=== PATIENT | male | born 1965 | race Hispanic/Latino ===

== ENCOUNTER 2025-03-12 04:49 | Day surgery (SDC) | payer OTHER, SELFPAY ==
[2025-03-12] VITALS (17 sets, daily range): BP systolic 99–172; BP diastolic 54–101; BMI 39.5; BMI 40.8
[2025-03-12 02:00] LABS: Hematocrit 42.5 % (39.0-52.0); Hemoglobin 14.1 g/dL (13.0-18.0); Mean Corp Hgb Conc. 33.2 g/dL (33.0-37.0); Mean Corpuscular Volume 88.9 fL (80.0-94.0); Nucleated Red Blood Cells % 0 % (-); Platelet Count 326 10^3/uL (130-400); Red Cell Dist. Width 13.7 % (11.5-14.5)
[2025-03-12] MEDS: ZOFRAN 4 MG IV (02:08)
[2025-03-12] MEDS: MORPHINE SULFATE 4 MG IV (02:09)
--- NOTE | 2025-03-12 02:09 | ED.GENMED ---
History of Present Illness
General
Chief Complaint: Abdominal Pain
Source: patient
Time Seen by Provider: 03/12/25 01:30
Nursing documentation reviewed up to this point in time: agreed with
History of Present Illness
History of Present Illness:
Note:
CHIEF COMPLAINT(S)
Abdominal pain.
HISTORY OF PRESENT ILLNESS
The patient is a 59-year-old male presenting with abdominal pain located just below the sternum, which started a few days ago. The pain is described as localized, without radiation to the shoulder or jaw. The patient did not report any aggravating
or relieving factors; however, he noted that eating a banana made the pain slightly worse. This pain resembles a previous episode concerning the gallbladder, although the previous episode involved shoulder discomfort. The patient denied eating
dinner on the day of the consultation to avoid exacerbating the pain. He reported having a bowel movement a couple of hours prior, which was harder than usual.
PAST MEDICAL AND SURGICAL HISTORY
The patient has a history of gallbladder issues, as assessed over a year ago.
FAMILY HISTORY
The patients mother had a history of heart problems and from a blood condition at the age of 60.
SOCIAL HISTORY
The patient reports minimal alcohol use and denies any smoking or drug use. He lives in [place] and is currently visiting a friend.
PHYSICAL EXAM
General: Alert, no acute distress.
Skin: Warm, dry.
Head: Normocephalic, atraumatic.
Neck: Supple, trachea midline.
Eye Ears, nose, mouth, and throat: Oral mucosa moist.
Cardiovascular: Normal peripheral perfusion, No edema.
Respiratory: Respirations are non-labored.
Gastrointestinal: Abdomen nondistended but feels slightly bloated as compared to normal.
Back: Normal range of motion, Normal alignment.
Musculoskeletal: Normal range of motion, normal strength.
Neurological: Alert and oriented to person, place, time, and situation, No focal neurological deficit observed.
Psychiatric: Cooperative, appropriate mood & affect.
PLAN
The plan includes performing blood work, obtaining a portable chest X-ray, and scheduling an abdominal ultrasound. The working diagnosis leans towards a gallbladder issue; however, cardiac evaluation will also be considered if necessary. Additional
imaging may be required based on the initial results.
DIFFERENTIAL DIAGNOSIS
The Differential Diagnosis includes, in no particular order and is not limited to:
1. Cholecystitis
2. Peptic Ulcer Disease
3. Gastritis
4. Myocardial Ischemia
5. Pancreatitis
6. Gastroesophageal Reflux Disease (GERD)
7. Hepatic Disease
8. Aortic Dissection
9. Costochondritis
10. Appendicitis
Disposition:
SUMMARY OF ENCOUNTER
The patient is a 59-year-old male presenting due to issues related to acute colitis. The decision was made to admit the patient to ensure appropriate management and monitoring.
DISPOSITION
Admit to Dr. Trujillo service for further evaluation and treatment.
ASSESSMENT
Acute colitis contributing to abdominal pain and discomfort, necessitating inpatient care for optimal management.
DIAGNOSIS
Acute colitis (K52.9)
Phy Exam
Physical Exam
Physical Exam:
.
Course
Orders/Labs/Results
Orders:
Orders
03/12/25 01:30
EKG- Treatment ONCE
03/12/25 01:31
EKG- Treatment ONCE
03/12/25 01:32
Cardiac Monitoring- Treatment ONCE
CR Chest Portable - 1 View Urgent
Comment:
Reason For Exam: cp
Reason Study Needs to be Portable: Patient Unstable
03/12/25 01:38
CMP [Comprehensive Metabolic Panel] Urgent
Complete Blood Count/With Diff Urgent
Lipase Urgent
Magnesium Urgent
NT-proBNP Urgent
PTT Urgent
Prothrombin Time Urgent
TSH Urgent
Troponin I Urgent
03/12/25 01:51
US Abdomen Complete/Upper Urgent
Comment:
Reason For Exam: (+) Ferguson sign, RUQ abd pain
03/12/25 02:05
Morphine Sulfate 4 mg IV NOW STA
Ondansetron Injectable [Zofran] 4 mg IV NOW STA
03/12/25 02:40
HYDROmorphone [Dilaudid] 1 mg IV NOW STA
03/12/25 03:05
Acetaminophen 1000MG/100Ml [Ofirmev] 1,000 mg in 100 ml IV ONCE
Acetaminophen IV Indication:: ED Narcotic Naive Pt-ONCE
03/12/25 04:28
Admit/Transfer Patient As Directed
Co-Sign Provider:
Level of Care: Observation services
Assign to:: Medical/Surgical
Physician / Group: General Surgery/ Dr. Arvin Carter
Diagnosis: Acute Cholecystitis
03/12/25 04:35
Code Status As Directed
Resuscitation Status: Full Code
03/12/25 04:43
Troponin I Q3H
03/12/25 04:45
Electrocardiogram (*1) Q3H
Reason for Study: Chest Pain
03/12/25 Breakfast
NPO
Allow oral meds: Yes
Allow clear liquids: No
03/12/25 06:05
0.9% Sodium Chloride 1000 ml [Nss] 1,000 ml IV 140 mls/hr
Cyclobenzaprine HCl [Flexeril] 10 mg PO TID PRN back pain
Ketorolac [Toradol] 10 mg IV Q6HPRN PRN
Morphine Sulfate 2 mg IV Q2HPRN PRN
Morphine Sulfate 4 mg IV Q2HPRN PRN
03/12/25 06:05
Activity As Directed
Activity Level: Out of Bed-Early Mobility
Intake/ Output As Directed
Frequency: Per unit guidelines
Pneumatic Compression Sleeves As Directed
Type: Knee high
Vital Signs As Directed
Frequency: Per unit guidelines
DX Deep Vein Thrombosis Video Routine
03/12/25 07:00
Piperacillin/Tazo 3.375 Gram [Zosyn] 3.375 gram in 50 ml IV Q6H
03/12/25 08:00
Ondansetron Injectable [Zofran] 4 mg IV Q6HPRN PRN
Abnormal Lab Results
03/12/25
01:38
WBC 16.4 H 10^3/uL
(4.8-10.8)
Abs Immat Gran (auto) 0.1 H 10^3/uL
(0-0.05)
Absolute Neuts (auto) 12.3 H 10^3/uL
(1.4-6.5)
Absolute Monos (auto) 1.5 H 10^3/uL
(0.1-0.6)
Lymphocytes % 15.2 L %
(20.5-51.1)
Carbon Dioxide 31 H mmol/L
(22-30)
Glucose 123 H mg/dl
(70-99)
03/12/25 01:38
03/12/25 01:38
Vital Signs
Initial and Last Documented VS:
Initial Vital Signs
Temp Pulse Resp BP Pulse Ox
97.9 F 89 22 150/101 98
03/12/25 01:21 03/12/25 01:21 03/12/25 01:21 03/12/25 01:21 03/12/25 01:21
Last Documented Vital Signs
Temp Pulse Resp BP Pulse Ox
98.6 F 93 16 132/76 94
03/13/25 11:20 03/13/25 11:20 03/13/25 11:20 03/13/25 11:20 03/13/25 11:20
*Pulse Oximetry
SaO2: 97
Oxygen Mode of Delivery: Room air
Patient hypoxic: no
*Critical Care Note
Total Time (30-74mins, 75-104mins- exclusive of procedures): Not Applicable
Update Note
Update Note:
NAME: APRIL FISHER
DATE OF EXAM: 03/12/2025
Patient No: [id number]
Physician: PAZ
Date of : 1965
Past Medical History (entered by Technologist):
Reason For Exam (entered by Technologist):
Other Notes (entered by Technologist):
Additional Information (per [facility] Radiologist):
ULTRASOUND ABDOMEN COMPLETE
COMPARISON: None
IMPRESSION:
Gallbladder is distended with multiple gallstones in the gallbladder including in the gallbladder neck. Nonuniform wall thickening with foci of ringdown artifact in the gallbladder wall at the fundus. Sonographic Ferguson sign positive
While the nonuniform gallbladder wall thickening is consistent with adenomyomatosis, overall the findings are concerning for acute cholecystitis given the positive Ferguson's.
The common bile duct measures 6 mm.
Visualized pancreas is unremarkable.
Increased hepatic echogenicity is consistent with steatosis.
The kidneys are normal.
Visualized abdominal aorta and inferior vena cava are normal.
Spleen is unremarkable.
Case finalized on 03/12/25 03:11 EDT
Ghassan Arrington M.D.
This report has been electronically signed and verified by the Radiologist whose name is printed above.
ED Attending Note
-
Portions of this chart may have been created with voice recognition software.� Occasional wrong word or��sound alike� substitutions may have occurred due to the inherent limitations of voice recognition software.
Discharge Plan
Departure
Patient Disposition: Admit
Presentation/result/management discussed w/ accepting /: Emma
Discharge Problem:
Acute cholecystitis
Interventions
Interventions:
*Risk Screen - Suicide Last Done: 03/12/25 06:08
*General Assessment Last Done: 03/12/25 01:21
*Neglect/Abuse Screening Last Done: 03/12/25 01:21
*ED- Fall Risk Assessment Last Done: 03/12/25 01:21
*ED COVID-19 Vaccine History Last Done: 03/12/25 06:08
*ED Influenza Vaccine History Last Done: 03/12/25 01:21
*Nursing Disposition Last Done: 03/12/25 05:52
EU-Mmlyxj-Edofbtugeu Assessment Last Done: 03/12/25 01:48
Discharge Date and Time
Discharge Date/Time: 03/12/25 05:52
[2025-03-12 02:10] LABS: APTT 35.0 Sec (23.4-35.0); INR 1.03; PT 14.0 Sec (11.4-14.6)
[2025-03-12 02:22] LABS: ALT (SGPT) 17 U/L (0-50); AST (SGOT) 20 U/L (17-59); Albumin 4.6 g/dl (3.5-5.0); Alkaline Phosphatase 95 U/L (38-126); Blood Urea Nitrogen 13 mg/dl (9-20); Calcium 9.5 mg/dl (8.4-10.2); Carbon Dioxide 31 mmol/L (22-30); Chloride 101 mmol/L (98-107); Estimated Creatinine Clearance > 125 ml/min; Glucose 123 mg/dl (70-99); Lipase 49 U/L (23-300); Magnesium 1.9 mg/dl (1.6-2.3); Potassium 4.6 mmol/L (3.5-5.1); Sodium 139 mmol/L (135-145); Total Protein 7.8 g/dl (6.3-8.2); eGFR > 60.00
[2025-03-12 02:33] LABS: Troponin I < 0.012 ng/ml
[2025-03-12] MEDS: DILAUDID 1 MG IV (02:41)
[2025-03-12 02:51] LABS: TSH 1.38 uIU/ml (0.47-4.68)
[2025-03-12] MEDS: OFIRMEV 100 IV (03:21)
--- NOTE | 2025-03-12 04:43 | HPS.HSE ---
Addendum entered and electronically signed by Arvin Carter MD 03/12/25 07:55:
I saw and examined the patient.
The Cement Tile Maker's note was reviewed and I agree with the note.
Comment: 59M, second episode, last time 2 years ago was seen at [facility] in [place] where he lives, given the option for CCY but deferred. Presents this time with acute onset upper abd pain localized to RUQ and epigastrium after eating a breakfast
[place]. His pain has improved since then but he remains moderately ttp at RUQ/epigastrium this am. WBC 16.4K LFTs WNL. US with stones, GBWT 6mm, no PCF, CBD 6mm. BMI 40. He lives in [place] and plans to return in 5 days. We discussed the
anatomy and pathophysiology of ACC, operative procedure lap giovanni, risks, benefits, complications and alternatives and he agreed to proceed and signed the consent. He is added onto the schedule today.
Original Note:
Family Physician
-
Family Physician: * NONE
Chief Complaint
-
Abdominal pain
History of Present Illness
This is a 59-year-old man who presents to [facility] without a significant past medical history. Past surgical hx significant for R shoulder rotator cuff repair and R Biceps tendon repair.
He presents tonight with complaints of abrupt onset of sharp sub sternal abdominal pain that began hours after he ate breakfast and went for a walk. He notes that the pain got progressively worse as the day went on but denies taking anything at home
to alleviate the pain. He reports that the abdominal pain is better post Morphine.
Denies vomiting, diarrhea, diaphoresis, fevers, chest pain, dysuria, urgency, or hematuria. Reports last BM was 03/11/25. Denies hematochezia.
He reports nausea and SOB- related to the pain.
Reports a history of a similar episode about a year ago- he doesn't remember if imaging was completed at the time but they told him 'you will probably need your gallbladder taken out'
WBCs 16.4, UA- pending
He received Dilaudid and Morphine for pain and Zofran for nausea.
Medical History
Past Medical History
Past Medical History: Reports None
Past Surgical History: Reports Orthopedic (R shoulder rotator cuff repair and R Biceps tendon repair)
Social History
Tobacco: Non-smoker
Alcohol: Occasional
Drug: None
Employment: Employed
Family History
Family History: Not pertinent
Allergies / Home Medications
Allergies reflects when Allergies were last updated in [facility].
Home Medications with original date entered in [facility]
Allergy/Medication List:
Allergies
Allergy/AdvReac Type Severity Reaction Status Date / Time
No Known Allergies Allergy Verified 03/12/25 01:20
Home Medications
cyclobenzaprine 10 mg tablet 10 mg PO TID PRN back pain 03/12/25
Review of Systems
-
History Source: Patient
A 12 point ROS was completed and negative except as noted: Yes
Abdomen/GI: Reports Abdominal Pain and Nausea
Physical Exam
Vital Signs
Vital Signs
Temp Pulse Resp BP Pulse Ox
98.8 F 93 19 154/77 97
03/12/25 03:23 03/12/25 03:45 03/12/25 03:45 03/12/25 03:00 03/12/25 02:10
Physical Exam
General: Well Developed and Comfortable
HEENT: NormoCephalic
Respiratory: Clear
Cardiac: S1/S2 and Regular Rhythm
GI: Normal Bowel Sounds, Tender and Other (obese)
Genito-urinary: Deferred by me
Musculoskeletal: No Clubbing and No Edema
Skin: Warm
Neuro: AO x 3
Hematologic/Lymphatic: No Lymphadenopathy
Psych: Calm
Laboratory Results
-
03/12/25 01:38
03/12/25 01:38
Laboratory Results
PT 14.0 Sec (11.4-14.6) 03/12/25 01:38
INR 1.03 03/12/25 01:38
APTT 35.0 Sec (23.4-35.0) 03/12/25 01:38
Total Bilirubin 0.9 mg/dl (0.2-1.3) 03/12/25 01:38
AST 20 U/L (17-59) 03/12/25 01:38
ALT 17 U/L (0-50) 03/12/25 01:38
Alkaline Phosphatase 95 U/L (38-126) 03/12/25 01:38
Troponin I < 0.012 ng/ml 03/12/25 01:38
Lipase 49 U/L (23-300) 03/12/25 01:38
Data Reviewed
-
Lab Data: Labs Reviewed by me
Impression/Plan
-
ULTRASOUND ABDOMEN
IMPRESSION:
Gallbladder is distended with multiple gallstones in the gallbladder including in the gallbladder neck. Nonuniform wall thickening with foci of ringdown artifact in the gallbladder wall at the fundus. Sonographic Ferguson sign positive
While the nonuniform gallbladder wall thickening is consistent with adenomyomatosis, overall the findings are concerning for acute cholecystitis given the positive Ferguson's.
The common bile duct measures 6 mm.
Visualized pancreas is unremarkable.
Increased hepatic echogenicity is consistent with steatosis.
The kidneys are normal.
Visualized abdominal aorta and inferior vena cava are normal.
Spleen is unremarkable.
IMPRESSION/ PLAN:
Admit to General Surgery- Dr. Carter
Med Surg
Acute Cholecystitis
NPO
IVF
ABX
Antiemetics
PRN pain management
DVT Prophylaxis: SCDs
Full Code�
[2025-03-12 05:19] LABS: Troponin I < 0.012 ng/ml
[2025-03-12] MEDS: ZOSYN 50 IV ×3 (08:46→17:14)
[2025-03-12] MEDS: MORPHINE SULFATE 2 MG IV (08:47)
[2025-03-12] MEDS: NSS 1000 IV ×2 (08:49→19:30)
[2025-03-12] MEDS: TORADOL 10 MG IV (12:54)
--- NOTE | 2025-03-12 14:03 | W.SUR.PREOP ---
Pre-Operative Surgical Note
-
I have examined this patient prior to the performance of the scheduled procedure.
The patient's condition is unchanged from the time of the current History and
Physical and the patient is able to undergo the scheduled procedure.
--- NOTE | 2025-03-12 15:57 | W.IMMPOSTOP ---
Addendum entered and electronically signed by Salvador Clarke MD 03/12/25 16:10:
#[id number]
Original Note:
Surgical Immed Post Op Note
-
Primary Surgeon: Salvador Clarke MD
Assisting Surgeon: Stan Russ
Pre-op Diagnosis: Acute calculous cholecystitis
Post-op Diagnosis: Acute calculous cholecystitis
Procedure Performed: Laparoscopic cholecystectomy
Anesthesia Type: GETA +0.25% Marcaine with epinephrine
Specimen / Cultures: Gallbladder/none
Estimated Blood Loss: 6 mL
Complications: None immediate
Operative Findings: Enlarged, tensely distended gallbladder encased within inflammatory peel. Chronic adhesions as well. Cyst needle decompression to aid in grasping, retraction and exposure. Cystic triangle dissected out with critical view of
safety achieved identify cystic artery and duct as well as single posterior artery branch. Structures clipped. Liver bed intact other than needle decompression site. Extracted at epigastric port site which had to be enlarged to accommodate the
large gallbladder and stones.
Plan: Advance diet as tolerated
Continue Zosyn initially postoperatively but anticipate discharge without antibiotics
Routine postoperative supportive care
Patient's updated via phone call
--- NOTE | 2025-03-12 17:08 | CM ---
I.A: Completed By LAKHWINDER Monroy
Patient lives with his in [place], but here because he is a [place] at an event and was hospitalized. Lives in a 2 Story House, No DME, only Outpatient PT, No Inpatient Rehab.
[facility] [place]
[facility]acy: Can use local [facility] where he is staying, but [facility]
Patient has transportation Home when ready. PLAN: Anticipate Home No Needs.
[2025-03-13] MEDS: NSS 1000 IV (00:05)
[2025-03-13] MEDS: ZOSYN 50 IV ×2 (00:06→06:38)
[2025-03-13 04:40] VITALS: BP 136/74
[2025-03-13 07:35] VITALS: BP 119/63
[2025-03-13] MEDS: NSS IV (09:17)
--- NOTE | 2025-03-13 10:04 | W.PN.GS2 ---
Today's Communication / Plan
-
discharge
Assessment / Plan
-
POD#1 Laparoscopic cholecystectomy
Vitals: normal
-Continue low fat diet
-OOB as tolerated
-NO further antibiotics required
-DC IVFs
-Okay for discharge today. All discharge instructions discussed with patient including medications, activity levels, and follow up. Follow up in the office with Dr. Clarke vs in [place] with [facility] in a few weeks.
Subjective Data
-
Date of Service: March 13, 2025
Patient states he feels well. He has no pain. He denies nausea or vomiting. He is tolerating a diet. Has flatus, no BMs yet.
Objective Data
-
Intake and Output
03/12/25 03/13/25 03/14/25
06:59 06:59 06:59
Intake Total 2660 / 2660
Balance 2660 / 2660
Intake:
Oral fluids 240 / 240
IV fluids (Total) 2170 / 2170
normosol 50 / 50
IV piggybacks 250 / 250
Other:
Number of approximated MODERATE 2 1
amounts of urine
Vital Signs
Temp Pulse Resp BP Pulse Ox
97.9 F 77 16 119/63 100
03/13/25 07:35 03/13/25 07:35 03/13/25 07:35 03/13/25 07:35 03/13/25 07:35
Lab Results
03/12/25 01:38
03/12/25 01:38
Calcium 9.5 mg/dl (8.4-10.2) 03/12/25 01:38
Magnesium 1.9 mg/dl (1.6-2.3) 03/12/25 01:38
Total Bilirubin 0.9 mg/dl (0.2-1.3) 03/12/25 01:38
AST 20 U/L (17-59) 03/12/25 01:38
ALT 17 U/L (0-50) 03/12/25 01:38
Alkaline Phosphatase 95 U/L (38-126) 03/12/25 01:38
Total Protein 7.8 g/dl (6.3-8.2) 03/12/25 01:38
Albumin 4.6 g/dl (3.5-5.0) 03/12/25 01:38
Physical Exam
-
AAOX3
Abdomen: soft, non-tender, non-distended, incisions c/d/i
Patient has a sandra catheter: No
Patient has a central line: No
[2025-03-13 11:20] VITALS: BP 132/76
--- NOTE | 2025-03-13 13:43 | CM ---
Pt for dc today with no anticipated needs
== END 2025-03-13 12:20 | disposition home or self-care (01) ==
LOC: SDS 04:49
PROVIDERS: EMERGENCY PHYSICIAN Student in an Organized Health Care Education/Training Program
DX: K80.12 Calculus of gallbladder with acute and chronic cholecystitis without obstruction (principal); E66.9 Obesity, unspecified; Z68.41 Body mass index [BMI] 40.0-44.9, adult; Z79.899 Other long term (current) drug therapy
CPT/HCPCS: 47562; 71045; 76700; 80053; 83690; 83735; 83880; 84443; 84484; 85025; 85610; 85730; 88304; 93005; 96374; 96375; 99285; G0378